=== PATIENT | female | born 1965 | race Hispanic/Latino ===

== ENCOUNTER 2024-10-22 11:10 | Emergency (ER) | payer BC, OTHER ==
[~2024-10-22] VITALS: Ht 154.9 cm; Wt 88.9 kg
[~2024-10-22 11:10] MED LIST: AMLODIPINE BESY10 MG PO; ATORVASTATIN CA10 MG PO; COLACE100 MG PO; ESTRADIOL PO; IRON PO; LISINOPRIL10 MG PO; LYSTEDA650 MG PO; OMEGA-31000 MG PO; PHENTERMINE HCL15 MG PO; PREMARIN0.625 MG PO; TYLENOL WITH C1 EACH PO
[2024-10-22] MEDS ORDERED: METFORMIN HCL500 M1 PO (11:29)
[2024-10-22] MEDS ORDERED: VENLAFAXINE HCL75 M1 PO (11:29)
[2024-10-22] MEDS ORDERED: MOUNJARO10 MG/0.5 (11:29)
[2024-10-22] MEDS: ONDANSETRON HCL 4 MG ORAL DISINTEGRATING TAB PO ONE (11:39)
[2024-10-22] MEDS: ACETAMINOPHEN 325 MG TAB PO ONE (11:57)
[2024-10-22] MEDS ORDERED: MECLIZINE HCL12.5 MG PO (13:04)
[2024-10-22] MEDS ORDERED: ONDANSETRON ODT4 MG PO (13:05)
[2024-10-22 13:14] VITALS: PULSE 66; RESP 16; TEMP 98.3; O2SAT 97
== END 2024-10-22 13:14 | disposition home or self-care (01) ==
LOC: FSED 11:14
DX: R42 Dizziness and giddiness (principal); R11.0 Nausea; I10 Essential (primary) hypertension; E11.9 Type 2 diabetes mellitus without complications; E78.5 Hyperlipidemia, unspecified; E78.00 Pure hypercholesterolemia, unspecified; Z11.52 Encounter for screening for COVID-19; R94.31 Abnormal electrocardiogram [ECG] [EKG]
CPT/HCPCS: 0223U; 80048; 81003; 82553; 84484; 85025; 87400; 93005; 99284; Q0162